=== PATIENT | male | born 1985 | race Two or more races ===

== ENCOUNTER 2023-04-07 08:24 | Emergency (ER) | payer MEDICAID, OTHER, SELFPAY ==
--- NOTE | ~2023-04-07 | XR_ITS ---
STUDY: Lumbar spine, sacrum and coccyx INDICATION: Pain TECHNIQUE: 3 view lumbar spine, 3 views sacrum and coccyx COMPARISON: None FINDINGS: Lumbar spine: Mild lumbar lordotic straightening. L3 posterior inferior spur and likely causing impression on the thecal sac and for exiting neural foramen. No fracture or dislocation. Pedicles and SI joints within normal limits. Sacrum and coccyx: No definite bony acute bony abnormality. XR/XR lumbar spine 2-3V IMPRESSION: Lumbar lordotic straightening. L3 posterior inferior spur. Consider other cross-sectional imaging for neuroforaminal and/or thecal sac impingement. No acute bony pathology lumbar spine, sacrum and coccyx.
--- NOTE | ~2023-04-07 | XR_ITS ---
STUDY: Lumbar spine, sacrum and coccyx INDICATION: Pain TECHNIQUE: 3 view lumbar spine, 3 views sacrum and coccyx COMPARISON: None FINDINGS: Lumbar spine: Mild lumbar lordotic straightening. L3 posterior inferior spur and likely causing impression on the thecal sac and for exiting neural foramen. No fracture or dislocation. Pedicles and SI joints within normal limits. Sacrum and coccyx: No definite bony acute bony abnormality. XR/XR sacrum coccyx min 2V IMPRESSION: Lumbar lordotic straightening. L3 posterior inferior spur. Consider other cross-sectional imaging for neuroforaminal and/or thecal sac impingement. No acute bony pathology lumbar spine, sacrum and coccyx.
[2023-04-07 08:41] VITALS: BP 170/110; PULSE 90; RESP 18; TEMP 36.7; O2SAT 96; BMI 37.7
--- NOTE | 2023-04-07 09:57 | ED.BACK ---
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 Patient denies any recent trauma, injury, or heavy lifting. He states that after work he has had progressively worsening back pain. He reports that the back pain is aching and radiates down into his right buttocks. He reports that the pain worsens with movement. He denies any urinary or bowel incontinence. Denies dysuria, hematuria, urinary urgency or frequency. Denies saddle anesthesia. He states that he took gabapentin last night which provided him without any relief. No other complaints or concerns at this time. MD elicited complaint: back pain Pertinent past history: prior back pain Severity: moderate Similar Symptoms Previously: No Quality: aching Location: right lower back Radiation: buttocks and right upper leg Exacerbating factors: movement Relieving factors: immobilization Related Data Previous Rx's Medication Instructions Recorded acetaminophen 325 mg tablet 650 mg PO QID PRN pain #30 tabs 04/07/23 cyclobenzaprine 5 mg tablet 5 mg PO TID PRN muscle spasm #14 04/07/23 tabs prednisone 20 mg tablet 40 mg PO DAILY 5 days #10 tabs 04/07/23 Allergies Allergy/AdvReac Type Severity Reaction Status Date / Time No Known Allergies Allergy Verified 04/07/23 08:40 Review of Systems Review of Systems: Yes all other systems are reviewed and are negative Constitutional: Constitutional: Reports as per [facility] Social History Social History Advance Directives: No Physical Exam Vital Signs: Vital Signs: Last Vital Signs Temp 98.1 F 04/07/23 08:41 Pulse 62 04/07/23 11:39 Resp 18 04/07/23 11:39 BP 158/102 H 04/07/23 11:39 Pulse Ox 99 04/07/23 11:39 O2 Del Method Room Air 04/07/23 11:39 BMI result Body Mass Index 37.7 Const: General: cooperative, comfortable and no acute distress Orientation/consciousness: patient oriented x3 Limitations: no limitations HEENT: Head: Yes normal to inspection, Yes normocephalic and Yes atraumatic Ears: hearing grossly normal bilaterally General nose exam: Normal external nose present Face and sinus: Yes normal facial exam Mouth: Normal oral and palatal mucosa present, oropharynx normal and moist mucous membranes Throat: Yes posterior oropharynx normal Eyes: General: appearance normal, both eyes and all related structures Eyelids: Yes eyelids normal Conjunctivae: conjunctivae normal Sclerae: sclerae normal Pupils: Equal, round and reactive pupils present EOM: EOMs intact bilaterally Neck: Neck: Yes normal visual inspection, Yes full ROM and Yes no lymphadenopathy Lymphatic: no lymphadenopathy noted Chest: Chest palpation & inspection: normal inspection of the chest Resp: Effort & Inspection: normal respiratory effort and able to speak in complete sentences Auscultation: clear to auscultation bilaterally, no crackles, no rales, no rhonchi and no wheezes Cardio: Rate: regular rate Rhythm: regular rhythm Heart sounds: S1 normal heart sound present and S2 normal heart sound present GI: Other: Abdomen is soft, nontender, nondistended. Normal active bowel sounds present in all 4 quadrants Inspection: Yes normal to inspection : General: Yes no CVA tenderness Back/Spine/Pelvis: Other: Tenderness to palpation along the lumbar midline spine and right lumbar paraspinous muscles and into the right buttocks. 5/5 strength in lower extremities. DTRs 2+ Back: no CVA tenderness Skin: General skin exam: no rashes or lesions noted Trauma: no lacerations or abrasions Wounds: no wounds Neuro: General: patient oriented x3 and moves all extremities Cranial nerves: Yes Equal, round and reactive pupils present Extrem: General: Yes normal to inspection Right upper extremity: normal to inspection Left upper extremity: normal to inspection Right lower extremity: normal to inspection Left lower extremity: normal to inspection Course Reevaluation(s) Reevaluation #1: X-rays return, revealing L3 posterior inferior spur. Discussed results with patient, given patient has no weakness in his lower extremities as well as red flag warning signs, patient needs to have further imaging done outpatient. Patient given return precautions if any new or worsening symptoms occur. Patient discharged on muscle relaxants, prednisone, and Tylenol. Patient understands and agrees with plan. Patient stable for discharge. Time: 11:22 Medications Administered Discontinued Medications Generic Name Dose Route Start Last Admin Trade Name Freq PRN Reason Stop Dose Admin Ketorolac Tromethamine 30 mg 04/07/23 09:54 04/07/23 10:46 Ketorolac Tromethamine 30 Mg/Ml Vial IM 04/07/23 09:55 30 mg ONCE ONE Administration Medical Decision Making Medical Decision Making [facility] Narrative: 37-year-old male, with a past medical history of chronic back pain, presenting to the emergency department for evaluation of acute on chronic back pain since yesterday. On arrival, patient is hypertensive at 170/110, likely due to pain. This patient presents with back pain most consistent with sciatica. Differential diagnoses includes lumbago versus musculoskeletal spasm / strain versus sciatica.No back pain red flags on history or physical. Presentation not consistent with malignancy (lack of history of malignancy, lack of B symptoms), fracture (no trauma, no bony tenderness to palpation), cauda equina (no bowel or urinary incontinence/retention, no saddle anesthesia, no distal weakness), pyelonephritis (afebrile, no CVAT, no urinary symptoms). Given the clinical picture, will obtain x-rays for further evaluation. Patient medicated with Toradol 30 mg IM. Differential Diagnosis Differential Diagnoses: The differential diagnosis associated with the presentation includes See above Radiology Impression Discussion of test interpretation with radiology: I have reviewed the radiologist's reading. Radiologist Impression: Ordering Physician: Sarah Smalls Date of Service: 04/07/23 Procedure(s): XR sacrum coccyx min 2V Accession Number(s): [id number] cc: Sarah Smalls~ STUDY: Lumbar spine, sacrum and coccyx INDICATION: Pain TECHNIQUE: 3 view lumbar spine, 3 views sacrum and coccyx COMPARISON: None FINDINGS: Lumbar spine: Mild lumbar lordotic straightening. L3 posterior inferior spur and likely causing impression on the thecal sac and for exiting neural foramen. No fracture or dislocation. Pedicles and SI joints within normal limits. Sacrum and coccyx: No definite bony acute bony abnormality. XR/XR sacrum coccyx min 2V IMPRESSION: Lumbar lordotic straightening. L3 posterior inferior spur. Consider other cross-sectional imaging for neuroforaminal and/or thecal sac impingement. No acute bony pathology lumbar spine, sacrum and coccyx. Dictated By: Claritza White MD Discharge Plan Discharge Clinical Impression: Back pain Patient Disposition: Home, Self-Care Instructions: Back Pain (ED) Additional Instructions: Your x-ray revealed a L3 posterior inferior spur. Please follow-up with your primary care physician regarding this visit. I have given you a list of primary care offices, please call to make an appointment. Please take prescribed medication as directed. Do not take NSAIDs such as ibuprofen or naproxen while taking prednisone. You may take Tylenol as prescribed as needed for pain. Please be advised that Flexeril can cause drowsiness, do not drink alcohol or drive while taking this medication. If any new or worsening symptoms occur, including but not limited to worsening back pain, numbness or tingling anterior groin, urinary or bowel retention or incontinence, please return to the emergency room. Castro radiograf?a revel? un espol?n posteroinferior L3. Rubio un seguimiento con castro m?dico de atenci?n primaria con respecto a esta visita. Le he dado indio lista de oficinas de atenci?n primaria, por favor llame para hacer indio geovanny. Villanova los medicamentos recetados seg?n las indicaciones. No tome KAUR oliver ibuprofeno o naproxeno mientras octavia prednisona. Puede dawn Tylenol seg?n lo prescrito seg?n sea necesario para el dolor. Tenga en cuenta que Flexeril puede causar somnolencia, no erica alcohol ni maneje mientras octavia leatha medicamento. Si se presentan s?ntomas nuevos o que empeoran, incluidos, entre otros, dolor de espalda que empeora, entumecimiento u hormigueo en la parte anterior de la eva, retenci?n urinaria o intestinal o incontinencia, regrese a la ester de emergencias. Prescriptions: New prednisone 20 mg tablet 40 mg PO DAILY 5 Days Qty: 10 0RF cyclobenzaprine 5 mg tablet 5 mg PO TID PRN (Reason: muscle spasm) Qty: 14 0RF acetaminophen 325 mg tablet 650 mg PO QID PRN (Reason: pain) Qty: 30 0RF Referrals: [place],[facility] [Physician] - Stand Alone Forms: Work/School Release Interventions: ED Discharge Assessment Last Done: 04/07/23 11:54 Discharge Date/Time: 04/07/23 11:55
[2023-04-07] MEDS: Ketorolac Tromethamine 30 MG/ML VIAL IM (10:46)
[2023-04-07 11:39] VITALS: BP 158/102; PULSE 62; RESP 18; O2SAT 99
== END 2023-04-07 11:55 | disposition home or self-care (01) ==
PROVIDERS: Emergency Provider Emergency Medicine
DX: M54.50 Low back pain, unspecified (principal)
CPT/HCPCS: 72100; 72220; 96372; 99283; 99284; J1885

== ENCOUNTER 2023-10-09 10:08 | Emergency (ER) | payer OTHER, MEDICAID, SELFPAY ==
[2023-10-09 10:09] VITALS: BP 192/109; PULSE 80; RESP 18; TEMP 36.6; O2SAT 96; BMI 38.2
--- NOTE | 2023-10-09 13:52 | PC.NURSE ---
PT CALLED FOR RE-EVAL AND RME, HAD LEFT
== END 2023-10-09 13:52 | disposition left against medical advice (07) ==
PROVIDERS: Emergency Provider Emergency Medicine
DX: M54.50 Low back pain, unspecified (principal)
CPT/HCPCS: 99281

== ENCOUNTER 2023-10-10 14:09 | Emergency (ER) | payer OTHER, MEDICAID, SELFPAY ==
--- NOTE | ~2023-10-10 | XR_ITS ---
EXAMINATION: XR THORACIC SPINE CLINICAL INFORMATION: Back pain COMPARISON: None available. TECHNIQUE: 3 views of the thoracic spine were obtained. FINDINGS: There is no fracture or bone destruction seen and the vertebral alignment is normal. There is no disc space narrowing. There is no abnormality of the paraspinal soft tissues. XR/XR thoracic spine 3V IMPRESSION: Unremarkable examination.
--- NOTE | ~2023-10-10 | XR_ITS ---
EXAMINATION: XR LUMBOSACRAL SPINE CLINICAL INFORMATION: Low back pain COMPARISON: Previous x-ray March 2023 TECHNIQUE: Three views of the lumbosacral spine. FINDINGS: Bone alignment is normal. No fracture or dislocation. Posterior vertebral body osteophyte projecting off the inferior endplate of the L3 vertebral body unchanged. Normal disc spaces. Normal paraspinal soft tissues. XR/XR lumbar spine 2-3V IMPRESSION: No acute findings. Posterior vertebral body osteophyte projecting off the inferior endplate of the L3 vertebral body unchanged.
[2023-10-10 14:47] VITALS: BP 152/97; PULSE 89; RESP 16; TEMP 36.4; O2SAT 95; BMI 38.5
--- NOTE | 2023-10-10 14:51 | ED_ITS ---
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 No radiation of pain. No numbness or tingling in the legs or in the groin. No weakness in the legs. No bowel or bladder incontinence. No fevers or chills. Taking Motrin at home with continued symptoms Related Data Previous Rx's Medication Instructions Recorded acetaminophen 325 mg tablet 650 mg (2 x 325 mg) PO QID PRN 04/07/23 pain #30 tabs cyclobenzaprine 5 mg tablet 5 mg PO TID PRN muscle spasm #14 04/07/23 tabs prednisone 20 mg tablet 40 mg (2 x 20 mg) PO DAILY 5 days 04/07/23 #10 tabs cyclobenzaprine 10 mg tablet 10 mg PO TID PRN muscle spasm #15 10/10/23 tabs lidocaine 5 % topical patch 1 patch topical DAILY #15 ea 10/10/23 (Lidoderm) Allergies Allergy/AdvReac Type Severity Reaction Status Date / Time No Known Allergies Allergy Verified 10/10/23 14:53 Review of Systems 2 Review of Systems: Yes all other systems are reviewed and are negative Constitutional: Constitutional: Reports no additional constitutional complaints, Denies body ache(s), Denies chills, Denies fever(s), Denies headache(s) and Denies weakness Eyes: Eyes: Reports no additional eye complaints and Denies change in vision ENT: Reports system reviewed and no additional complaints, except as documented, Denies dizziness, Denies headache(s), Denies nasal congestion, Denies nasal discharge and Denies neck pain Cardiovascular: Cardiovascular: Reports no additional cardiovascular complaints, Denies chest pain, Denies leg edema and Denies dyspnea Respiratory: Respiratory: Reports no additional respiratory complaints, Denies cough and Denies dyspnea Gastrointestinal: Gastrointestinal: Reports no additional gastrointestinal complaints, Denies abdominal pain, Denies diarrhea, Denies nausea and Denies vomiting Genitourinary: Genitourinary: Denies urinary incontinence Musculoskeletal: Musculoskeletal: Reports no additional musculoskeletal complaints, Reports back pain, Denies arthralgias, Denies joint swelling, Denies neck pain, Denies numbness and Denies tingling Integumentary/Breasts: Skin/Breast: Reports system reviewed and no additional complaints, except as docu and Denies rash Neurologic: Reports system reviewed and no additional complaints, except as documented, Denies Abnormal speech present, Denies dizziness, Denies headache(s), Denies numbness, Denies tingling and Denies weakness [facility] Past Medical History Attestation statement: The following information was validated with the patient. Source: old records reviewed and nursing notes reviewed Physical Exam 2 Vital Signs: Vital Signs: Last Vital Signs Temp 97.5 F 10/10/23 14:47 Pulse 89 10/10/23 14:47 Resp 16 10/10/23 14:47 BP 152/97 H 10/10/23 14:47 Pulse Ox 95 10/10/23 14:47 O2 Del Method Room Air 10/10/23 14:47 BMI result Body Mass Index 38.5 Const: General: cooperative, healthy appearing, comfortable and no acute distress Orientation/consciousness: patient oriented x3 Limitations: no limitations HEENT: Head: Yes normal to inspection Ears: hearing grossly normal bilaterally General nose exam: Normal external nose present Face and sinus: Yes normal facial exam Mouth: Normal oral and palatal mucosa present Throat: Yes posterior oropharynx normal Eyes: General: appearance normal, both eyes and all related structures P upils: Equal, round and reactive pupils present Neck: Neck: Yes normal visual inspection Chest: Chest palpation & inspection: normal inspection of the chest Resp: Effort & Inspection: normal respiratory effort Auscultation: clear to auscultation bilaterally Cardio: Rate: regular rate Rhythm: regular rhythm Peripheral pulses: P eripheral pulses 2+ throughout GI: Inspection: Yes normal to inspection Palpation (GI): Soft to palpation and nontender Auscultation: normal bowel sounds Back/Spine/Pelvis: Thoracic/Lumbar Spine: thoracic and lumbar spine normal to inspection Back/spine/pelvis image: 1. +muscle spasm, palpable TTP Skin: General skin exam: no rashes or lesions noted Neuro: General: patient oriented x3, moves all extremities, no focal motor deficits and normal sensation to monofilament Cranial nerves: Yes Equal, round and reactive pupils present Cognition (Neuro): normal cognition S peech: No Abnormal speech present Gait exam (Neuro): Normal gait present M otor exam (neuro): 5/5 motor strength present throughout Sensory Exam: Normal double simultaneous stimulation for sensation Deep tendon reflexes (DTR's): R ight patellar reflex intensity grade: 2+ and Left patellar reflex intensity grade: 2+ Extrem: General: Yes normal to inspection Course Course Course Narrative: RME: 38 year-old M w/no sig PMHx presenting to the ED c/o mid back pain s/p throwing heavy trash at work last week. denies numbness/tingling, weakness, incontinence/retention XRs ordered Full HPI, ROS and PE to be performed by primary ED provider. Reevaluation(s) Reevaluation #1: x-ray show no acute fracture. Likely muscle strain based on clinical exam. Recommend supportive care at home. Reviewed worrisome signs and symptoms when to return to the emergency room. Comfortable plan for discharge home. Medical Decision Making Medical Decision Making [facility] Narrative: 38-year-old male with no known medical history presents the ER with complaints of right upper back pain after lifting injury which occurred at work on . No radiation of pain. No numbness or tingling in the legs or in the groin. No weakness in the legs. No bowel or bladder incontinence. No fevers or chills. Taking Motrin at home with continued symptoms TTP to right upper thoracic, +muscle spasm Normal neuro exam with no focal neurological deficits Will review x-rays from triage Differential Diagnosis Differential Diagnoses: The differential diagnosis associated with the presentation includes muscle strain low concern for fracture with no reports of fall Low concern for cord compression, caude equina, epidural abscess, malignancy with normal neurological exam no focal finding Admission/Observation Consideration of admission/observation: Escalation of care including admission/observation considered Low concern for cord compression, caude equina, epidural abscess, malignancy with normal neurological exam no focal finding requiring urgent MRI Independent Interpretation I performed an independent interpretation of an: Plain X-Ray Interpretation: I independently reviewed the x-ray and agree with the radiology report Radiology Impression Discussion of test interpretation with radiology: I have reviewed the radiologist's reading. Radiologist Impression: [address] [id number] XRay Report Signed Patient: Papito George MR#: [id number] : 1985 Acct:[id number] Age/Sex: 38 / M ADM Date: 10/10/23 Loc: HO.ED Attending Dr: Ordering Physician: Deepti Hedrick Date of Service: 10/10/23 Procedure(s): XR lumbar spine 2-3V Accession Number(s): [id number] cc: Robert Cortez MD; Deepti Hedrick~ EXAMINATION: XR LUMBOSACRAL SPINE CLINICAL INFORMATION: Low back pain COMPARISON: Previous x-ray March 2023 TECHNIQUE: Three views of the lumbosacral spine. FINDINGS: Bone alignment is normal. No fracture or dislocation. Posterior vertebral body osteophyte projecting off the inferior endplate of the L3 vertebral body unchanged. Normal disc spaces. Normal paraspinal soft tissues. XR/XR lumbar spine 2-3V IMPRESSION: No acute findings. Posterior vertebral body osteophyte projecting off the inferior endplate of the L3 vertebral body unchanged. [place] [id number] XRay Report Signed Patient: Papito George MR#: [id number] : 1985 Acct:[id number] Age/Sex: 38 / M ADM Date: 10/10/23 Loc: .ED Attending Dr: Ordering Physician: Deepti Hedrick Date of Service: 10/10/23 Procedure(s): XR thoracic spine 3V Accession Number(s): [id number] cc: Robert Cortez MD; Deepti Hedrick~ EXAMINATION: XR THORACIC SPINE CLINICAL INFORMATION: Back pain COMPARISON: None available. TECHNIQUE: 3 views of the thoracic spine were obtained. FINDINGS: There is no fracture or bone destruction seen and the vertebral alignment is normal. There is no disc space narrowing. There is no abnormality of the paraspinal soft tissues. XR/XR thoracic spine 3V IMPRESSION: Unremarkable examination. Tests considered The following testing was considered but not selected: low concern for cord compression, caude equina, epidural abscess, malignancy with normal neurological exam no focal finding requiring urgent MRI Prescription Management I considered prescription management with: Pain Medication Discharge Plan Discharge Clinical Impression: Muscle strain Patient Disposition: Home, Self-Care Instructions: Muscle Strain (ED) Additional Instructions: heat or ice to the area Gentle stretching No heavy lifting or bending Follow-up with work connection at Continue motrin calor o hielo al ?whit Estiramiento suave Sin levantar objetos pesados ??ni agacharse Seguimiento con conexi?n laboral al continuar motrin Prescriptions: New lidocaine [Lidoderm] 5 % adhesive patch,medicated 1 patch topical DAILY Qty: 15 0RF Rx Instructions: leave on most painful area for up to 12 hrs cyclobenzaprine 10 mg tablet 10 mg PO TID PRN (Reason: muscle spasm) Qty: 15 0RF No Action prednisone 20 mg tablet 40 mg PO DAILY 5 Days Qty: 10 0RF cyclobenzaprine 5 mg tablet 5 mg PO TID PRN (Reason: muscle spasm) Qty: 14 0RF acetaminophen 325 mg tablet 650 mg PO QID PRN (Reason: pain) Qty: 30 0RF Referrals: Robert Cortez MD [Primary Care Provider] - 10 days Stand Alone Forms: Work/School Release Print Language: Greek
== END 2023-10-10 16:49 | disposition home or self-care (01) ==
LOC: HO.ED 16:48
PROVIDERS: Emergency Provider Internal Medicine; PCP Internal Medicine
DX: S29.012A Strain of muscle and tendon of back wall of thorax, initial encounter (principal); X50.0XXA Overexertion from strenuous movement or load, initial encounter; Y93.89 Activity, other specified; Y92.59 Other trade areas as the place of occurrence of the external cause; Y99.0 Civilian activity done for income or pay
CPT/HCPCS: 72072; 72100; 99282; 99283

== ENCOUNTER 2025-04-03 14:14 | Outpatient (REF) | payer OTHER, SELFPAY ==
[2025-04-03 15:21] LABS: MANUAL DIFF FLAG NO
[2025-04-03 15:30] LABS: Hematocrit 43.2 % (42.0-52.0); Hemoglobin 14.0 g/dl (14.0-18.0); Imm Gran Abs Auto 0.04 X10*3/uL (0.00-0.03); Imm Gran Pct Auto 0.4 % (0.0-0.4); Lymphocytes Absolute Auto 2.7 X10*3/uL (1.2-4.9); Mean Corpuscular HGB Conc 32.4 g/dl (31.0-36.0); Mean Corpuscular Hemoglobin 26.0 pg (27.0-33.0); Mean Corpuscular Volume 80.1 fL (80.0-98.0); NRBC Abs Auto 0.000 X10*3/uL (0.0-0.012); NRBC Pct Auto 0.0 /100WBC (0.0-0.2); Platelet Count 405 X10*3/uL (160-400); Red Blood Count 5.39 X10*6/uL (4.60-5.80); White Blood Count 9.2 X10*3/uL (4.8-10.8)
[2025-04-05 23:53] LABS: Class Alternaria alternata 0; Class Aspergillus fumigatus 0; Class Bermuda Grass 1; Class Birch 3; Class Cat Dander 1; Class Cladosporium herbarum 0; Class Cockroach 0/1; Class Common Ragweed 2; Class Cottonwood 2; Class Derm. pterony 1; Class Dermatophagoides farinae 2; Class Dog Dander 1; Class Elm 2; Class Maple Box Elder 2; Class Mountain Cedar 1; Class Mouse Urine Protein 0; Class Mugwort 2; Class Oak 2; Class Penicillium crysogenum 0; Class Rough Pigweed 0/1; Class Sheep Sorrel 0/1; Class Sycamore 1; Class Timothy Grass 2; Class Walnut Tree 2; Class White Ash 2; Class White Mulberry 0; D002 - IgE D farinae 1.56 kU/L; E001 - IgE Cat Dander 0.63 kU/L; E005 - IgE Dog Dander 0.52 kU/L; G006 - IgE Timothy Grass 0.79 kU/L; I006-IgE Cockroach, German 0.11 kU/L; M002 - IgE Cladosporium herbar <0.10 kU/L; M003 - IgE Aspergillus fumigat <0.10 kU/L; M006 - IgE Alternaria alternat <0.10 kU/L; T001 IgE Maple/Box Elder 2.76 kU/L; T006 - IgE Cedar, Mountain 0.53 kU/L; T007 - IgE Oak, White 3.46 kU/L; T008 IgE Elm, American 1.07 kU/L; T010 - IgE Walnut 2.63 kU/L; T011 - IgE Maple Leaf Sycamore 0.44 kU/L; T014 - IgE Cottonwood 1.13 kU/L; T015 - IgE Ash, White 1.31 kU/L; T070 - IgE White Mulberry <0.10 kU/L; W001 - IgE Ragweed, Short 1.44 kU/L; W006 - IgE Mugwort 1.07 kU/L; W014 IgE Pigweed, Common 0.18 kU/L; W018 IgE Sheep Sorrel 0.26 kU/L
== END 2025-04-03 14:15 | disposition home or self-care (01) ==
LOC: HO.LAB 14:14
PROVIDERS: PCP Internal Medicine; Referring Provider Internal Medicine; Visit Provider Nurse Practitioner Family
DX: G47.33 Obstructive sleep apnea (adult) (pediatric) (principal); G47.34 Idiopathic sleep related nonobstructive alveolar hypoventilation; R06.00 Dyspnea, unspecified; Z91.09 Other allergy status, other than to drugs and biological substances
CPT/HCPCS: 36415; 82785; 85025; 86003; 99202

== ENCOUNTER 2025-04-03 14:14 | Outpatient (AMB) | payer OTHER, SELFPAY ==
[2025-04-03 14:25] VITALS: BP 150/98; PULSE 90; O2SAT 96; BMI 39.6
--- NOTE | 2025-04-03 14:25 | A.OFFVIS_ITS ---
Vital Signs 3 04/03/25 14:25 Height 5 ft 8 in Weight 260 lb 2.327 oz BMI 39.6 BP 150/98 H Blood Pressure Location Rt brachial Position Sitting Pulse 90 Pulse Source Pulse Oximeter Pulse Oximetry (%) 96 Oxygen Delivery Method Room Air Intake Visit Reasons: Sleep apnea Assistant Case Manager Required: Yes Assistant Case Manager Language: Cable Maintainer Services: Assistant Case Manager Present Assistant Case Manager Name: Ginny Toro LM Allergies No Known Allergies Allergy (Verified 04/03/25 14:29) HPI HPI Sleep apnea: Details: Papito is a pleasant 39 year old male, never smoker, with underlying severe obstructive sleep apnea. He was referred by PCP for further management of obstructive sleep apnea. He reports recent in lab sleep study through [facility] in January revealing very severe obstructive sleep apnea and failed CPAP therapy, with recommendations for BiPAP trial. AHI 85 with significant nocturnal hypoxia, desaturating into the 70s. He reported symptoms of sleep apnea started worsening about 3 years ago and continues with significant daytime fatigue, witnessed apneas this and proximal nocturnal dyspnea. He is interested in starting therapy for CHANA. He also reports more notable dyspnea with exertion and at rest, chest tightness as well as wheezing. He denies prior history of asthma. He endorses seasonal allergies, no recent allergy testing. Currently using daily antihistamines with moderate effect. He denies any occupational exposures. He reports father with some type of respiratory diagnosis. [facility] Social History (Updated 04/03/25 @ 14:30 by Ginny Venegas CMA) Patient Tobacco Use Status: Former Tobacco user Review of Systems Const Denies chills, Denies excessive sweating, Denies fever(s), Denies headache(s) and Denies night sweats Eyes Denies dry eyes, Denies irritation and Denies itchy eyes ENT Reports Normal hearing present and Denies headache(s) Card Denies chest pain, Denies chest pain at rest, Denies chest pain with activity, Denies claudication, Denies leg edema and Denies orthopnea Resp Denies chest congestion, Denies excessive phlegm production, Denies pain on inspiration, Denies pain with cough and Denies stridor Musc Denies myalgias Neuro Reports Normal hearing present and Denies headache(s) Endo Denies excessive sweating Anthony/Lymph Denies lymphadenopathy Aller/Immun Denies itchy eyes and Denies seasonal rhinorrhea Physical Exam Vital Signs: Last Vital Signs Pulse 90 04/03/25 14:25 BP 150/98 H 04/03/25 14:25 Pulse Ox 96 04/03/25 14:25 Oxygen Delivery Method Room Air 04/03/25 14:25 BMI result Body Mass Index 39.6 Const General: cooperative, healthy appearing, comfortable, no acute distress, well developed and alert Nutritional Appearance: obese Orientation/consciousness: patient oriented x3 Limitations: no limitations HEENT Head: Yes normal to inspection, Yes normocephalic and Yes atraumatic Ears: hearing grossly normal bilaterally and external ears normal Eyes General: appearance normal, both eyes and all related structures Eyelids: Yes eyelids normal Sclerae: sclerae normal EOM: EOMs intact bilaterally Neck Neck: Yes normal visual inspection and Yes no lymphadenopathy Lymphatic: no lymphadenopathy noted Chest Chest palpation & inspection: normal inspection of the chest Resp Effort & Inspection: normal respiratory effort, able to speak in complete sentences, no audible wheezes, no cough, no stridor, not tachypneic, no tripod positioning and no use of accessory muscles Auscultation: diminished lung sounds Cardio Jugular venous distension: no JVD Rate: regular rate Rhythm: regular rhythm Skin Other: warm, dry General skin exam: no rashes or lesions noted Neuro General: patient oriented x3 Cranial nerves: Yes Normal hearing present Cognition (Neuro): normal cognition Gait exam (Neuro): Normal gait present Extrem General: Yes normal to inspection, Yes capillary refill normal, Yes no clubbing, cyanosis or edema and Yes no pedal edema Psych Appearance: grossly normal and well kempt Speech and movement: Normal speech and movement present and Clear speech present Affect: normal affect Attitude: cooperative Thought process: Normal thought process present Thought content: Normal thought content present Insight: Good insight present (Psych) Judgement: Good judgement present (Psych) Results Reviewed Results Reviewed: Assessment & Plan Assessment & Plan (1) Severe obstructive sleep apnea: Code(s): G47.33 - Obstructive sleep apnea (adult) (pediatric) Category: Medical (2) Nocturnal hypoxemia: Code(s): G47.34 - Idiopathic sleep related nonobstructive alveolar hypoventilation Category: Medical (3) Dyspnea: Code(s): R06.00 - Dyspnea, unspecified Category: Medical (4) Environmental allergies: Code(s): Z91.09 - Other allergy status, other than to drugs and biological substances Category: Medical Plan Papito presents for further management of obstructive sleep apnea. Previously trialed CPAP therapy however did not have any resolution of obstructive events and continued with nocturnal hypoxemia. Will send for in lab titration study to trial BiPAP therapy. He also reports ongoing dyspnea, will send for PFT to assess for any obstructive or restrictive defect. He endorses seasonal allergies which trigger respiratory symptoms, will send for RAST testing to assess for an allergic component. All questions were answered and patient is in agreement of plan. Will follow-up to review results or sooner if needed. Orders: Orders 2 RT PSG in-lab sleep titration Today G47.33 - Obstructive sleep apnea (adult) (pediatric), G47.34 - Idiopathic sleep related nonobstructive alveolar hypoventilation Complete Blood Count Auto Diff Today Z91.09 - Other allergy status, other than to drugs and biological substances Immunoglobulin E Today Z91.09 - Other allergy status, other than to drugs and biological substances Resp Allergy Profile Region I Today Z91.09 - Other allergy status, other than to drugs and biological substances PFT pulmonary function test Today R06.00 - Dyspnea, unspecified Medications: Discontinued 2 cyclobenzaprine Discontinued Reason: Patient Completed Course 10 mg PO TID PRN 15 tabs 0RF muscle spasm Coding Level of Care Code New Pt Level 4 (62259) Diagnoses Severe obstructive sleep apnea G47.33 Nocturnal hypoxemia G47.34 Dyspnea R06.00 Environmental allergies Z91.09
--- OUTSIDE RECORDS SUMMARY | 2025-04-03 14:44 | XMS_ITS | Clinical Summary ---
Author Organization [facility] [address] [place] [address] [place] [phone] Phone Care Team Providers Care National Business Director Name Role Phone Robert Cortez MD Primary Care Provider Allergies Active Allergy Reactions Criticality Noted Date Comments Grass Pollen 12/20/2024 Other 09/15/2018 Medications ibuprofen (ADVIL,MOTRIN) 600 mg tablet TAKE 1 TABLET BY MOUTH 3 TIMES A DAY NEEDED FOR MODERATE TO SEVERE PAIN 4 Active acetaminophen (TYLENOL 8 HOUR) 650 mg 8 hr tablet Take 1 tablet (650 mg total) by mouth every 8 (eight) hours if needed for mild pain. Do not crush, chew, or split. 90 tablet 3 5 Active amLODIPine (NORVASC) 5 mg tablet Take 1.5 tablets (7.5 mg total) by mouth 1 (one) time each day. 135 each 1 5 Active cyclobenzaprine (FLEXERIL) 5 mg tablet Take 1 tablet (5 mg total) by mouth at bedtime as needed for muscle spasms. 30 tablet 5 5 Active fexofenadine (REILLY) 180 mg tablet Take 1 tablet (180 mg total) by mouth 1 (one) time each day if needed (allergies). 90 tablet 1 5 Active gabapentin (NEURONTIN) 100 mg capsule Take 1 Capsule by mouth See Admin Instructions. 1 cap in AM and 2 cap at night 90 capsule 4 5 Active lisinopril-hydr oCHLOROthiazide (PRINZIDE,ZESTO RETIC) 20-12.5 mg per tablet Take 1 tablet by mouth 1 (one) time each day. 90 tablet 1 5 Active metFORMIN XR (GLUCOPHAGE-XR) 500 mg 24 hr tablet Take 1 tablet (500 mg total) by mouth 1 (one) time each day with breakfast. Do not crush, chew, or split. 90 each 1 5 02/15/20 26 Active omeprazole (PriLOSEC) [address] capsule Take 1 capsule (40 mg total) by mouth 1 (one) time each day. 90 capsule 1 5 Active traZODone (DESYREL) 50 mg tablet Take 1 tablet (50 mg total) by mouth at bedtime. 90 tablet 1 5 Active diclofenac (VOLTAREN) 1 % topical gel Apply 2 g topically 2 (two) times a day if needed (pain). 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 Gastroesophageal reflux disease without esophagi tis 01/07/2024 Primary hypertension 11/05/2023 Obesity (BMI 35.0-39.9 without comorbidity) 01/22 Encounters Date Type Department Care Team Description 02/28/2025 [facility] Worker Program [address] [place] [phone] [employer] 02/17/2025 Telephone Adult Medicine [address] [phone] Robert Cortez MD 02/14/2025 2:45 PM EDT Office Visit Adult Medicine [address] [phone] Robert Cortez MD Primary hypertension (Primary Dx); Prediabetes; Gastroesophageal reflux disease without esophagitis; Spondylosis of lumbar region without myelopathy or radiculopathy; Insomnia, unspecified type; CHANA (obstructive sleep apnea) 02/01/2025 [facility] [address] [place] [phone] [employer] from Last 3 Months Immunizations Name Administration Dates Next Due Tdap Tetanus diptheria acell ular pertussis (Boostrix; Adacel) 7yo and older 02/01/2019 Surgical History Surgery Date Site/Laterality Comments OTHER SURGICAL HISTORY PROCEDURE: DENIES PREVIOUS SURGERY CHOLECYSTECTOMY PROCEDURE: CA LAPAROSCOPY SURG CHOLECYSTECTOMY Medical History Medical History Date Comments Obesity (BMI 30-39.9) 02/01/2019 DX:Obesity (BMI 30-39.9) Family History Medical History Relation Name Comments Hyperlipidemia Father Hypertension Mother Relation Name Status Comments Father Alive Mother Alive Social History Tobacco Use Types Packs/Day Years Used Date Smoking Tobacco: Never Smokeless Tobacco: Never Alcohol Use Standard Drinks/Week Comments No 0 (1 standard drink = 0.6 oz pur e alcohol) Housing Instability Answer Date Recorde d Are you worried that in the next 2 months you may not have stable housing? Yes 09/08/2024 Food Access & Nutrition Answer Date Rec orded Do you have access to a vari ety of food including fruits and vegetables? Yes 09/08/2024 Access to Healthcare Answer Date Record ed Within the last 3 months, ho kyra many times did you visit the emergency department for your medical care? 0 09/08/2024 Health Literacy Answer Date Recorded How often do you need to hav e someone help you when you read instructions, pamphlets, or other written material from your doctor or pharmacy? Never 09/08/2024 Caregiver: How often do you need to have someone help you when you read instructions, pamphlets, or other written material from your doctor or pharmacy? Not on file 09/08/2024 Financial Risk Answer Date Recorded How hard is it for you to pa y for the very basics like food, housing, medical care, and air conditioning / heating? Hard 09/08/2024 Transportation Answer Date Recorded Has the lack of transportati on kept you from meetings, work, or from getting things needed for daily living? Yes Has the lack of transportati on kept you from medical appointments or from getting medications? Yes 09/08/2024 Social Isolation Answer Date Recorded How often do you feel lonely or isolated from those around you? Sometimes 09/08/2024 Food Risk Answer Date Recorded Within the past 12 months we worried whether our food would run out before we got money to buy more. Often true 09/08/2024 Within the past 12 months th e food we bought just didn't last and we didn't have money to get more. Often true 09/08/2024 Dependent Care Answer Date Recorded Do you need help finding or paying for care for your loved ones. For example, child day care provider or elderly care for an older adult? No 09/08/2024 Education Answer Date Recorded Do you think completing more education or training, like finishing a GED, going to college, or learning a trade, would be helpful for you? No 09/08/2024 Employment and Income Answer Date Recor ded During the last four weeks, have you been actively looking for work? No 09/08/2024 Living Situation Answer Date Recorded What is your living situation? 0 09/08/2024 Sex and Gender Information Value Date Recorded Sex Assigned at Male 09/15/2024 2:18 PM EST Legal Sex Male 9:14 AM EST Gender Identity Male 09/15/2024 2:18 PM EST Sexual Orientation Not on file Obstetrics History Last Filed Vital Signs Vital Sign Reading Time Taken Comments Blood Pressure 146/92 02/14/2025 2:14 PM EDT provider will recheck Pulse 92 02/14/2025 2:14 PM EDT Temperature 36.6 C (97.8 F) 02/14/2025 2:14 PM EDT Respiratory Rate 18 02/14/2025 2:14 PM EDT Oxygen Saturation - - Inhaled Oxygen Concentration - - Weight 117 kg (258 lb) 02/14/2025 2:14 PM EDT Height 172.7 cm (5' 8 ) 02/14/2025 2:14 PM EDT Body Mass Index 39.23 02/14/2025 2:14 PM EDT Plan of Treatment Upcoming Encounters Date Type Department Care Team (Late st Contact Info) Description 05/17/2025 11:15 AM EDT Office Visit [address] [phone] Robert Cortez MD [address] [place] [phone] 07/21/2025 8:30 AM EST Office Visit Adult Medicine [address] [phone] Rufina Acevedo PA [address] [place] [address] Health Maintenance Due Date Last Done Comments Hepatitis B Vaccines (1 of 3 - 19+ 3-dose series) 2003 HIV Screening 07/27/2022 Hepatitis C Screening 07/27/2022 COVID-19 Vaccine (1 - 2023-2 5 season) 2024 Influenza Vaccine (#1) 2025 Social Influencers of Health Screening 09/08/2025 09/08/2024 Hypertension/CHF/CAD Annual BMP Blood Test 02/14/2026 02/14/2025, 03/16/2024, 03/16/2024 DTaP,Tdap,and Td Vaccines (2 - Td or Tdap) 02/01/2029 02/01/2019 Cholesterol Screening (Lipid Panel) 03/16/2029 03/16/2024, 03/16/2024 Depression Screening Completed 11/14/2024 HIB Vaccines Aged Out No longer eligi ble based on patient's age to complete this topic HPV Vaccines Aged Out No longer eligi ble based on patient's age to complete this topic Hepatitis A Vaccines Aged Out No long er eligible based on patient's age to complete this topic IPV Vaccines Aged Out No longer eligi ble based on patient's age to complete this topic MMR Vaccines Aged Out No longer eligi ble based on patient's age to complete this topic Meningococcal ACWY Vaccine Aged Out N o longer eligible based on patient's age to complete this topic Meningococcal B Vaccine Aged Out No l onger eligible based on patient's age to complete this topic Pneumococcal Vaccine: Pediatrics (0 to 5 Years) and At-Risk Patients (6 to 49 Years) Aged Out No longer eligible b ased on patient's age to complete this topic RSV Immunization Patients Under 20 months Aged Out No longer eligible b ased on patient's age to complete this topic Varicella Vaccines Aged Out No longer eligible based on patient's age to complete this topic Procedures Procedure Name Priority Date/Time Associated Diagnosis Comments HEMOGLOBIN A1C Routine 02/14/2025 2:49 PM EDT Prediabetes BASIC METABOLIC PANEL Routine 02/14/2025 2:49 PM EDT Primary hypertension CA SLEEP STUDY ATTENDED Routine 02/14/2025 2:29 PM EDT LIPID PANEL Routine 03/16/2024 from Last 3 Months or Most Recently Relevant to Health Maintenance Results * Hemoglobin A1c (02/14/2025 2:49 PM EDT) [facility] Hemoglobin A1C 6.1 <6.5 % LAB CHEMISTRY METHOD 02/14/2025 8:46 PM EDT [facility] Mean Bld Glu Estim. 128 mg/dL LAB CHEMISTRY METHOD 02/14/2025 8:46 PM EDT [facility] Blood Venous blood specimen / Unknown Venipuncture / Unknown 02/14/2025 2:49 PM EDT 02/14/2025 2:49 PM EDT us Robert Cortez MD LAB BLOOD ORDERABLES Final Result [facility] [address] [place] [address], * (ABNORMAL) Basic metabolic panel (02/14/2025 2:49 PM EDT) [facility] Sodium 138 133 - 145 mmol/L LAB CHEMISTRY METHOD 02/14/2025 6:52 PM EDT [facility] Potassium 4.2 3.5 - 5.5 mmol/L LAB CHEMISTRY METHOD 02/14/2025 6:52 PM EDT [facility] Chloride 106 96 - 110 mmol/L LAB CHEMISTRY METHOD 02/14/2025 6:52 PM EDT [facility] CO2 25 21 - 32 mmol/L LAB CHEMISTRY METHOD 02/14/2025 6:52 PM EDT [facility] Anion Gap 7 3 - 11 LAB CHEMISTRY METHOD 02/14/2025 6:52 PM EDT [facility] Glucose 122(H) 70 - 100 mg/dL LAB CHEMISTRY METHOD 02/14/2025 6:52 PM EDT [facility] BUN 15 5 - 25 mg/dL LAB CHEMISTRY METHOD 02/14/2025 6:52 PM EDT [facility] Creatinine 0.97 0.70 - 1.30 mg/dL LAB CHEMISTRY METHOD 02/14/2025 6:52 PM EDT [facility] eGFR 101 >=60 mL/min/1. 73m2 LAB CHEMISTRY METHOD 02/14/2025 6:52 PM EDT [facility] Comment:Calculation based on the Chronic Kidney Disease Epidemiology Collaboration (CKD-EPI) equation refit without adjustment for race. BUN/Creatinine Ratio 15.5 LAB CHEMISTRY METHOD 02/14/2025 6:52 PM EDT [facility] Calcium 9.6 8.5 - 10.5 mg/dL LAB CHEMISTRY METHOD 02/14/2025 6:52 PM EDT [facility] Blood Venous blood specimen / Unknown Venipuncture / Unknown 02/14/2025 2:49 PM EDT 02/14/2025 2:49 PM EDT Robert Cortez MD LAB BLOOD ORDERABLES Final Result [facility] [address] [place] [address], * General sleep study (02/14/2025 2:29 PM EDT) Historical Provider [facility] ORDERABLES F inal Result * (ABNORMAL) Lipid panel (03/16/2024) LDL/HDL Ratio 4 0 - 4 Triglycerides 152(A) 0 - 150 mg/dL Cholesterol 172 0 - 200 mg/dL HDL 40 >=40 mg/dL LDL Cholesterol 102(A) 0 - 100 mg/dL Blood Venous blood specimen / Unknown Historical Provider LAB BLOOD ORDERABLES Lynn l Result from Last 3 Months or Most Recently Relevant to Health Maintenance Insurance [facility] [place] [id number] Care Teams National Business Director Relationship Specialty Start Date End Date Robert Cortez MD [address] [place] [id number] PCP - General 10/07/23
== END 2025-04-03 14:53 | disposition home or self-care (01) ==
LOC: HO.HPS 14:15
PROVIDERS: PCP Internal Medicine; Referring Provider Internal Medicine; Visit Provider Nurse Practitioner Family
DX: G47.33 Obstructive sleep apnea (adult) (pediatric) (principal); G47.34 Idiopathic sleep related nonobstructive alveolar hypoventilation; R06.00 Dyspnea, unspecified; Z91.09 Other allergy status, other than to drugs and biological substances
CPT/HCPCS: 99204

== ENCOUNTER → 2025-05-31 19:30 | Outpatient (REF) | payer OTHER, SELFPAY | LOC: HO.SL 19:30 | PROVIDERS: PCP Internal Medicine; Visit Provider Nurse Practitioner Family | DX: G47.33 Obstructive sleep apnea (adult) (pediatric) (principal); G47.34 Idiopathic sleep related nonobstructive alveolar hypoventilation | CPT/HCPCS: 95811 ==

== ENCOUNTER → 2025-05-31 22:46 | Outpatient (BNV) | payer OTHER, SELFPAY | PROVIDERS: PCP Internal Medicine; Visit Provider Internal Medicine | DX: G47.33 Obstructive sleep apnea (adult) (pediatric) (principal); R06.83 Snoring | CPT/HCPCS: 95811 ==

== ENCOUNTER 2025-06-19 14:14 | Outpatient (AMB) | payer OTHER, SELFPAY ==
--- NOTE | 2025-06-19 14:20 | MHC.OFFVIS ---
Vital Signs 06/19/25 14:21 Height 5 ft 8 in Weight 270 lb 1.06 oz BMI 41.1 BP 148/100 H Blood Pressure Location Lt brachial Position Sitting Pulse 93 Pulse Source Pulse Oximeter Pulse Oximetry (%) 96 Oxygen Delivery Method Room Air Intake Visit Reasons: sleep apnea Mission Coordinator Required: Yes Mission Coordinator Language: Spool Salvager Services: Mission Coordinator Present Mission Coordinator Name: Ginny Toro LM Allergies No Known Allergies Allergy (Verified 06/19/25 14:25) HPI HPI sleep apnea: Details: Papito is a pleasant 40 year old male, never smoker, with underlying severe obstructive sleep apnea. He was initially referred by PCP for further management of obstructive sleep apnea. He reports recent in lab sleep study through [facility] in January revealing very severe obstructive sleep apnea and failed CPAP therapy, with recommendations for BiPAP trial. AHI 85 with significant nocturnal hypoxia, desaturating into the 70s. He reported symptoms of sleep apnea started worsening about 3 years ago and continues with significant daytime fatigue, witnessed apneas this and proximal nocturnal dyspnea. Today he presents to review sleep night sleep study. He also reported more notable dyspnea with exertion and at rest, chest tightness as well as wheezing, has PFT scheduled next week. He currently denies any cough, wheezing, or chest tightness, endorses fatigue with prolonged talking. [facility] Social History Patient Tobacco Use Status: Former Tobacco user Review of Systems Const Denies chills, Denies excessive sweating, Denies fever(s), Denies headache(s) and Denies night sweats Eyes Denies dry eyes, Denies irritation and Denies itchy eyes ENT Reports Normal hearing present, Denies headache(s), Denies nasal congestion, Denies nasal discharge, Denies post nasal drip and Denies sore throat Card Denies chest pain, Denies chest pain at rest, Denies chest pain with activity, Denies claudication, Denies leg edema, Denies orthopnea and Denies paroxysmal nocturnal dyspnea Resp Denies chest congestion, Denies cough, Denies excessive phlegm production, Denies pain on inspiration, Denies pain with cough, Denies stridor and Denies wheezing Musc Denies myalgias Neuro Reports Normal hearing present and Denies headache(s) Endo Denies excessive sweating Anthony/Lymph Denies lymphadenopathy Aller/Immun Denies itchy eyes, Denies seasonal rhinorrhea and Denies wheezing Physical Exam Vital Signs: Last Vital Signs Pulse 93 06/19/25 14:21 BP 148/100 H 06/19/25 14:21 Pulse Ox 96 06/19/25 14:21 Oxygen Delivery Method Room Air 06/19/25 14:21 BMI result Body Mass Index 41.1 Const General: cooperative, healthy appearing, comfortable, no acute distress, well developed and alert Nutritional Appearance: obese Orientation/consciousness: patient oriented x3 Limitations: no limitations HEENT Head: Yes normal to inspection, Yes normocephalic and Yes atraumatic Ears: hearing grossly normal bilaterally and external ears normal Eyes General: appearance normal, both eyes and all related structures Eyelids: Yes eyelids normal Sclerae: sclerae normal EOM: EOMs intact bilaterally Neck Neck: Yes normal visual inspection and Yes no lymphadenopathy Lymphatic: no lymphadenopathy noted Chest Chest palpation & inspection: normal inspection of the chest Resp Effort & Inspection: normal respiratory effort, able to speak in complete sentences, no audible wheezes, no cough, no stridor, not tachypneic, no tripod positioning and no use of accessory muscles Auscultation: diminished lung sounds Cardio Jugular venous distension: no JVD Rate: regular rate Rhythm: regular rhythm Skin Other: warm, dry General skin exam: no rashes or lesions noted Neuro General: patient oriented x3 Cranial nerves: Yes Normal hearing present Cognition (Neuro): normal cognition Gait exam (Neuro): Normal gait present Extrem General: Yes normal to inspection, Yes capillary refill normal, Yes no clubbing, cyanosis or edema and Yes no pedal edema Psych Appearance: grossly normal and well kempt Speech and movement: Normal speech and movement present and Clear speech present Affect: normal affect Attitude: cooperative Thought process: Normal thought process present Thought content: Normal thought content present Insight: Good insight present (Psych) Judgement: Good judgement present (Psych) Assessment & Plan Assessment & Plan (1) Severe obstructive sleep apnea: Code(s): G47.33 - Obstructive sleep apnea (adult) (pediatric) Category: Medical (2) Nocturnal hypoxemia: Code(s): G47.34 - Idiopathic sleep related nonobstructive alveolar hypoventilation Category: Medical (3) Dyspnea: Code(s): R06.00 - Dyspnea, unspecified Category: Medical (4) Environmental allergies: Code(s): Z91.09 - Other allergy status, other than to drugs and biological substances Category: Medical Plan Reviewed split night sleep study results with patient which revealed an AHI of 83, severe CHANA with mild nocturnal hypoxemia. Since patient is quite symptomatic, will start CPAP therapy. Will send in prescription for CPAP mode and pressure setting of 14 cmH2O with close monitoring for compliance and benefits. Sleep hygiene education reviewed. He is aware if there are any issues with the mask or CPAP machine, he will call the DME/office. Once established on CPAP therapy, will send for overnight oximetry to ensure resolution of nocturnal hypoxemia with CPAP use. Patient has upcoming PFT scheduled to assess for any underlying obstructive or restrictive defect contributing to dyspnea next week. All questions were answered and patient is in agreement of plan. Will follow up in 10-12 weeks or sooner if needed. Coding Level of Care Code Est Pt Level 4 (19810) Diagnoses Severe obstructive sleep apnea G47.33 Nocturnal hypoxemia G47.34 Dyspnea R06.00 Environmental allergies Z91.09
[2025-06-19 14:21] VITALS: BP 148/100; PULSE 93; O2SAT 96; BMI 41.1
--- OUTSIDE RECORDS SUMMARY | 2025-06-19 17:53 | XMS_ITS | Clinical Summary ---
Author Organization [facility] [address] [place] [address] [place] [phone] Phone Care Team Providers Care Die Polisher Name Role Phone Robert Cortez MD Primary Care Provider Allergies Active Allergy Reactions Criticality Noted Date Comments Grass Pollen 12/20/2024 Other 09/15/2018 Medications acetaminophen (TYLENOL 8 HOUR) 650 mg 8 hr tablet Take 1 tablet (650 mg total) by mouth every 8 (eight) hours if needed for mild pain. Do not crush, chew, or split. 90 tablet 3 09/16/19 25 Active cyclobenzaprin e (FLEXERIL) 5 mg tablet Take 1 tablet (5 mg total) by mouth at bedtime as needed for muscle spasms. 30 tablet 5 02/15/20 25 Active fexofenadine (REILLY) 180 mg tablet Take 1 tablet (180 mg total) by mouth 1 (one) time each day if needed (allergies). 90 tablet 1 02/15/20 25 Active gabapentin (NEURONTIN) 100 mg capsule Take 1 Capsule by mouth See Admin Instructions. 1 cap in AM and 2 cap at night 90 capsule 4 02/15/20 25 Active lisinopril-hyd roCHLOROthiazi de (PRINZIDE,ZEST ORETIC) 20-12.5 mg per tablet Take 1 tablet by mouth 1 (one) time each day. 90 tablet 1 02/15/20 25 Active metFORMIN XR (GLUCOPHAGE-XR ) 500 mg 24 hr tablet Take 1 tablet (500 mg total) by mouth 1 (one) time each day with breakfast. Do not crush, chew, or split. 90 each 1 02/15/20 25 06/24/2 026 Active omeprazole (PriLOSEC) [address] capsule Take 1 capsule (40 mg total) by mouth 1 (one) time each day. 90 capsule 1 02/15/20 25 Active traZODone (DESYREL) 50 mg tablet Take 1 tablet (50 mg total) by mouth at bedtime. 90 tablet 1 02/15/20 25 Active diclofenac (VOLTAREN) 1 % topical gel Apply 2 g topically 2 (two) times a day if needed (pain). 100 g 3 02/15/20 25 Active amLODIPine (NORVASC) 10 mg tablet Take 1 tablet (10 mg total) by mouth 1 (one) time each day. 90 each 1 05/25/20 25 Active meloxicam (MOBIC) 15 mg tablet Take 1 tablet (15 mg total) by mouth 1 (one) time each day if needed for moderate pain. 30 each 1 05/25/20 25 Active oxyCODONE (ROXICODONE) 5 mg immediate release tablet Take 1 tablet (5 mg total) by mouth 1 (one) time each day if needed for severe pain. Max Daily Amount: 5 mg 7 tablet 05/25/20 25 Active ibuprofen (ADVIL,MOTRIN) 600 mg tablet TAKE 1 TABLET BY MOUTH 3 TIMES A DAY NEEDED FOR MODERATE TO SEVERE PAIN 04/11/20 24 025 Discontinued amLODIPine (NORVASC) 5 mg tablet Take 1.5 tablets (7.5 mg total) by mouth 1 (one) time each day. 135 each 1 02/15/20 25 025 Discontinued oxyCODONE (ROXICODONE) 5 mg immediate release tablet Take 1 tablet (5 mg total) by mouth 1 (one) time each day if needed for severe pain. Max Daily Amount: 5 mg 7 tablet 05/25/20 25 025 Discontinued(Re order) Active Problems Problem Noted Date Diagnosed Date CHANA (obstructive sleep apnea) 05/16/2025 Insomnia 02/14/2025 Prediabetes 11/13/2024 Transaminitis 11/13/2024 Spondylosis of lumbar region without myelopathy or radiculopathy 01/07/2024 Gastroesophageal reflux disease without esophagi tis 01/07/2024 Primary hypertension 11/05/2023 Obesity (BMI 35.0-39.9 without comorbidity) 01/22 Encounters Date Type Department Care Team Description 05/25/2025 8:00 AM EDT Office Visit Adult Medicine [address] [phone] Robert Cortez MD Poorly-controlled hypertension (Primary Dx); Chronic bilateral low back pain without sciatica; Prediabetes; Gastroesophageal reflux disease without esophagitis; CHANA (obstructive sleep apnea); Insomnia, unspecified type 05/17/2025 Telephone [facility] [address] [place] [address] Mohini Miner from Last 3 Months Immunizations Immunization Administration Dates Next Due Tdap Tetanus diptheria acell ular pertussis (Boostrix; Adacel) 7yo and older 02/01/2019 Surgical History Surgery Date Site/Laterality Comments OTHER SURGICAL HISTORY PROCEDURE: DENIES PREVIOUS SURGERY CHOLECYSTECTOMY PROCEDURE: MO LAPAROSCOPY SURG CHOLECYSTECTOMY Medical History Medical History [...] ed Within the last 3 months, ho w many times did you visit the emergency [...] medical care, and air conditioning / heating? Somewhat hard 05/17/2025 Transportation Answer Date Recorded Has the lack of transportati on kept you from meetings, work, or from getting things needed for daily living? Yes Has the lack of transportati on kept you from medical appointments or from getting medications? No 05/17/2025 Social Isolation Answer Date Recorded How often do you feel lonely or isolated from those around you? Sometimes 09/08/2024 Food Risk Answer Date Recorded Within the past 12 months we worried whether our food would run out before we got money to buy more. Never true 05/17/2025 Within the past 12 months th e food we bought just didn't last and we didn't have money to get more. Never true 05/17/2025 Dependent Care Answer Date Recorded Do you need help finding or paying for care for your loved ones. For example, childbirth educator or elderly care for an older adult? [...] Date Recorded What is your living situation? Unrecognized valu e 09/08/2024 Sex and Gender Information Value Date Recorded Sex Assigned at Male 09/15/2024 2:18 PM EST Legal Sex Male 9:14 AM EST Gender Identity Male 09/15/2024 2:18 PM EST Sexual Orientation Not on file Obstetrics History Last Filed Vital Signs Vital Sign Reading Time Taken Comments Blood Pressure 170/124 05/25/2025 8:13 AM EDT Pulse 86 05/25/2025 8:02 AM EDT Temperature 35.9 C (96.7 F) 05/25/2025 8:02 AM EDT Respiratory Rate 18 02/14/2025 2:14 PM EDT Oxygen Saturation - - Inhaled Oxygen Concentration - - Weight 120 kg (265 lb) 05/25/2025 8:02 AM EDT Height 172.7 cm (5' 8 ) 05/25/2025 8:02 AM EDT Body Mass Index 40.29 05/25/2025 8:02 AM EDT Plan of Treatment Upcoming Encounters Date Type Department Care Team (Late st Contact Info) Description 07/21/2025 8:30 AM EST Office Visit Adult Medicine [facility] [address] [place] [address] Rufina Acevedo PA [address] [place] [address] Health Maintenance Due Date Last Done Comments Hepatitis B Vaccines (1 of 3 - 19+ 3-dose series) 2003 HPV Vaccines (1 - 3-dose SCD M series) 2011 HIV Screening 07/27/2022 Hepatitis C Screening 07/27/2022 COVID-19 Vaccine (1 - 2023-2 5 season) 2025 Influenza Vaccine (#1) 2025 Hypertension/CHF/CAD Annual BMP Blood Test 02/14/2026 02/14/2025, 03/16/2024, 03/16/2024 Social Influencers of Health Screening 05/17/2026 05/17/2025 DTaP,Tdap,and Td Vaccines (2 - Td or Tdap) 02/01/2029 02/01/2019 Cholesterol Screening (Lipid Panel) 03/16/2029 03/16/2024, 03/16/2024 RSV Immunization Adult Patients (1 - 1-dose 75+ series) 2059 Depression Screening Completed 11/14/2024 HIB Vaccines Aged [...] Procedure Name Priority Date/Time Associated Diagnosis Comments EXTERNAL CLINICAL LAB 04/03/2025 EXTERNAL CLINICAL LAB 04/03/2025 BASIC METABOLIC PANEL Routine 02/14/2025 2:49 PM EDT Primary hypertension LIPID PANEL Routine 03/16/2024 from Last 3 Months or Most Recently Relevant to Health Maintenance Results * External clinical lab (04/03/2025) Only the most recent of2 resultswithin the time period is included. us Provider [facility] LAB BLOOD ORDERABLES Fin al Result * (ABNORMAL) Basic metabolic panel (02/14/2025 2:49 PM EDT) Sodium 138 133 - 145 mmol/L LAB CHEMISTRY METHOD 02/14/2025 6:52 PM [facility] Potassium 4.2 3.5 - 5.5 mmol/L LAB CHEMISTRY METHOD 02/14/2025 6:52 PM [facility] Chloride 106 96 - 110 mmol/L LAB CHEMISTRY METHOD 02/14/2025 6:52 PM [facility] CO2 25 21 - 32 mmol/L LAB CHEMISTRY METHOD 02/14/2025 6:52 PM [facility] Anion Gap 7 3 - 11 LAB CHEMISTRY METHOD 02/14/2025 6:52 PM [facility] Glucose 122(H) 70 - 100 mg/dL LAB CHEMISTRY METHOD 02/14/2025 6:52 PM [facility] BUN 15 5 - 25 mg/dL LAB CHEMISTRY METHOD 02/14/2025 6:52 PM [facility] Creatinine 0.97 0.70 - 1.30 mg/dL LAB CHEMISTRY METHOD 02/14/2025 6:52 PM EDT [facility] eGFR 101 >=60 mL/min/1. 73m2 LAB CHEMISTRY METHOD 02/14/2025 6:52 PM EDT [facility] Comment:Calculation based on the Chronic Kidney Disease Epidemiology Collaboration (CKD-EPI) equation refit without adjustment for race. BUN/Creatinine Ratio 15.5 LAB CHEMISTRY METHOD 02/14/2025 6:52 PM EDT [facility] Calcium 9.6 8.5 - 10.5 mg/dL LAB CHEMISTRY METHOD 02/14/2025 6:52 PM EDT [facility] Blood Venous blood specimen / Unknown Venipuncture / Unknown 02/14/2025 2:49 PM EDT 02/14/2025 2:49 PM EDT Robert Cortez MD LAB BLOOD ORDERABLES Final Result [facility] [address] [place] [address], * (ABNORMAL) Lipid panel (03/16/2024) LDL/HDL Ratio 4 0 - 4 Triglycerides 152(A) 0 - 150 mg/dL Cholesterol 172 0 - 200 mg/dL HDL 40 >=40 mg/dL LDL Cholesterol 102(A) 0 - 100 mg/dL Blood Venous blood specimen / Unknown Historical Provider LAB BLOOD ORDERABLES Lynn l Result from Last 3 Months or Most Recently Relevant to Health Maintenance Insurance [facility] [employer] [place] [place] [id number] Care Teams Die Polisher Relationship Specialty Start Date End Date Robert Cortez MD [address] [place] [phone] PCP - General 10/07/23
== END 2025-06-19 14:45 | disposition home or self-care (01) ==
LOC: HO.HPS 14:14
PROVIDERS: PCP Internal Medicine; Visit Provider Nurse Practitioner Family
DX: G47.33 Obstructive sleep apnea (adult) (pediatric) (principal); G47.34 Idiopathic sleep related nonobstructive alveolar hypoventilation; R06.00 Dyspnea, unspecified; Z91.09 Other allergy status, other than to drugs and biological substances
CPT/HCPCS: 99214

== ENCOUNTER → 2025-06-19 14:14 | Outpatient (BNVA) | payer OTHER, SELFPAY | PROVIDERS: PCP Internal Medicine; Visit Provider Nurse Practitioner Family | DX: G47.34 Idiopathic sleep related nonobstructive alveolar hypoventilation (principal); R06.00 Dyspnea, unspecified; Z91.09 Other allergy status, other than to drugs and biological substances | CPT/HCPCS: 99212 ==